=== PATIENT | female | born 1950 | race Caucasian/White ===

== ENCOUNTER 2020-11-14 13:16 | Emergency (ER) | payer MEDICARE, OTHER ==
[~2020-11-14 13:16] MED LIST: BACTROBAN OINT22 GM EXT; MEDROL DOSEPAK 24 MG PO
[2020-11-14 14:57] LABS: HEMOGLOBIN 12.4 gm/dl (12.3-15.3); RED BLOOD COUNT 4.19 M/UL (4.00-5.10); WHITE BLOOD COUNT 8.1 K/UL (4.5-11.0)
[2020-11-14 15:26] LABS: BUN/CREATININE RATIO 16 (0-10)
[2020-11-14] MEDS ORDERED: PROVENTIL HFA6.7 GM INH (18:13)
[2020-11-14] MEDS ORDERED: AZITHROMYCIN250 MG PO (18:13)
== END 2020-11-14 19:10 | disposition home or self-care (01) ==
LOC: ER1 13:16
PROVIDERS: Emergency Medicine
DX: U07.1 COVID-19 (principal); J02.9 Acute pharyngitis, unspecified; I10 Essential (primary) hypertension
CPT/HCPCS: 71045; 80053; 82550; 82553; 83874; 83880; 84484; 85025; 85379; 93005; 94640; 94664; 94760; 99285; J7040; Q9967